=== PATIENT | female | born 1980 | race Caucasian/White ===

== ENCOUNTER → 2017-09-24 | Outpatient (CLI) | payer BC ==
[~2017-09-24] MED LIST: AGM875T PO; ALPR1TAB2 PO; BUTA1CAP39 PO; CALC-823 PO; CEPH500C PO; CYCL10TA9 PO; FAMO20TA5 PO; HYDR-757 PO; LORA10TA7 PO; METH4TAB PO; PRD20T PO; PROM25TA14 PO; SERT50TA2 PO; TRAM50TA2 PO
== END ==
LOC: SLEEP 14:00
PROVIDERS: ATTEND Nurse Practitioner Family
DX: G47.33 Obstructive sleep apnea (adult) (pediatric) (principal)

== ENCOUNTER 2017-10-13 15:55 | Emergency (ER) | payer BC ==
[~2017-10-13] VITALS: Ht 165.1 cm; Wt 90.7 kg
--- OUTSIDE RECORDS SUMMARY | 2017-10-13 16:01 | XMS REPORT | Continuity of Care Document ---
Author Author [facility] Organization [facility] Address Unknown Phone Unavailable Allergies Active Description Code Type Severity Reaction Onset Reported/Identified Relationship to Patient Clinical Status Yes CONTRAST DYE CONTRAST DYE Unknown rash 11/20/2015 Yes ibuprofen [id number] Drug Allergy Severe FACIAL SWELLING 11/20/2015 Medications There is no data. Problems Date Dx Coded Attending Type Code Diagnosis Diagnosed By 03/04/2010 Ot 599.0 03/04/2010 Ot 625.9 09/30/2010 Ot 708.9 03/23/2012 Ot 599.0 URIN TRACT INFECTION NOS 03/23/2012 Ot 620.2 OVARIAN CYST NEC/NOS 03/23/2012 Ot 625.9 FEM GENITAL SYMPTOMS NOS 05/19/2015 Ot 218.9 05/19/2015 Ot 620.9 05/19/2015 Ot 620.2 05/19/2015 DAVID YAÑEZ DO Ot 286.9 06/08/2015 MICAELA SOSA, LETTY Simms Ot 783.1 11/20/2015 Ot 218.9 11/20/2015 Ot 620.9 11/20/2015 Ot 620.2 11/20/2015 DAVID YAÑEZ DO Ot 286.9 11/20/2015 LETTY HINOJOSA NP Ot 783.1 11/20/2015 MARKY ROMAN MD Ot S90.32XA CONTUSION OF LEFT FOOT, INITIAL ENCOUNTE 11/20/2015 MARKY ROMAN MD Ot W10.9XXA FALL (ON) (FROM) UNSPECIFIED STAIRS AND 11/20/2015 MARKY ROMAN MD Ot Y92.[address] IN SINGLE-FAMILY (PRIVATE) [place] 11/20/2015 MARKY ROMAN MD Ot Y99.8 OTHER EXTERNAL CAUSE STATUS 06/25/2016 Ot 218.9 UTERINE LEIOMYOMA NOS 06/25/2016 Ot 620.9 NONINFL DIS OVA/ADNX NOS 06/25/2016 Ot 620.2 OVARIAN CYST NEC/NOS 06/25/2016 DAVID YAÑEZ DO Ot 286.9 COAGULAT DEFECT NEC/NOS 06/25/2016 MICAELA SOSA, LETTY Simms Ot 783.1 ABNORMAL WEIGHT GAIN 06/25/2016 DUNCAN GALE DO Ot M79.661 PAIN IN RIGHT LOWER LEG 06/26/2016 DUNCAN GALE DO Ot M79.661 PAIN IN RIGHT LOWER LEG 06/28/2016 Ot 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 Results Test Result Range Complete blood count (CBC) with automated white blood cell (WBC) differential - 06/25/16 20:14 Blood leukocytes automated count (number/volume) 8.7 10*3/uL 4.3-11.0 Blood erythrocytes automated count (number/volume) 4.88 10*6/uL 4.35-5.85 Venous blood hemoglobin measurement (mass/volume) 14.8 g/dL 11.5-16.0 Blood hematocrit (volume fraction) 44 % 35-52 Automated erythrocyte mean corpuscular volume 90 [foz_us] 80-99 Automated erythrocyte mean corpuscular hemoglobin (mass per erythrocyte) 30 pg 25-34 Automated erythrocyte mean corpuscular hemoglobin concentration measurement ( mass/volume) 34 g/dL 32-36 Automated erythrocyte distribution width ratio 13.1 % 10.0-14.5 Automated blood platelet count (count/volume) 370 10*3/uL 130-400 Automated blood platelet mean volume measurement 10.1 [foz_us] 7.4-10.4 Automated blood neutrophils/100 leukocytes 53 % 42-75 Automated blood lymphocytes/100 leukocytes 31 % 12-44 Blood monocytes/100 leukocytes 13 % 0-12 Automated blood eosinophils/100 leukocytes 3 % 0-10 Automated blood basophils/100 leukocytes 1 % 0-10 Blood neutrophils automated count (number/volume) 4.6 10*3 1.8-7.8 Blood lymphocytes automated count (number/volume) 2.7 10*3 1.0-4.0 Blood monocytes automated count (number/volume) 1.1 10*3 0.0-1.0 Automated eosinophil count 0.3 10*3/uL 0.0-0.3 Automated blood basophil count (count/volume) 0.1 10*3/uL 0.0-0.1 PT panel in platelet poor plasma by coagulation assay - 06/25/16 20:14 Prothrombin time (PT) in platelet poor plasma by coagulation assay 13.5 s 12.2-14.7 INR in platelet poor plasma or blood by coagulation assay 1.1 0.8-1.4 Activated partial thromboplastin time (aPTT) in platelet poor plasma bycoagulation assay - 06/25/16 20:14 Activated partial thromboplastin time (aPTT) in platelet poor plasma bycoagulation assay 33 s 24-35 Fibrin D-dimer FEU measurement in platelet poor plasma (mass/volume) - 20:14 Fibrin D-dimer FEU measurement in platelet poor plasma (mass/volume) < ug/mL 0.00-0.49 Comprehensive metabolic panel - 06/25/16 20:14 Serum or plasma sodium measurement (moles/volume) 139 mmol/L 135-145 Serum or plasma potassium measurement (moles/volume) 3.7 mmol/L 3.6-5.0 Serum or plasma chloride measurement (moles/volume) 105 mmol/L 98-107 Carbon dioxide 20 mmol/L 21-32 Serum or plasma anion gap determination (moles/volume) 14 mmol/L 5-14 Serum or plasma urea nitrogen measurement (mass/volume) 12 mg/dL 7-18 Serum or plasma creatinine measurement (mass/volume) 0.78 mg/dL 0.60-1.30 Serum or plasma urea nitrogen/creatinine mass ratio 15 NRG Serum or plasma creatinine measurement with calculation of estimated glomerular filtration rate > NRG Serum or plasma glucose measurement (mass/volume) 96 mg/dL 70-105 Serum or plasma calcium measurement (mass/volume) 9.6 mg/dL 8.5-10.1 Serum or plasma total bilirubin measurement (mass/volume) 0.3 mg/dL 0.1-1.0 Serum or plasma alkaline phosphatase measurement (enzymatic activity/volume) 67 U/L 40-136 Serum or plasma aspartate aminotransferase measurement (enzymatic activity/ volume) 23 U/L 5-34 Serum or plasma alanine aminotransferase measurement (enzymatic activity/volume ) 30 U/L 0-55 Serum or plasma protein measurement (mass/volume) 7.4 g/dL 6.4-8.2 Serum or plasma albumin measurement (mass/volume) 4.3 g/dL 3.2-4.5 Encounters ACCT No. Visit Date/Time Discharge Status Pt. Type Provider Facility Loc./Unit Complaint [id number] 09/24/2017 14:00:00 09/24/2017 23:59:59 CLS Outpatient ELIEZER WHITE APRN [facility] SLEEP G47.33 [id number] 06/25/2016 19:38:00 06/25/2016 21:26:00 DIS Emergency DUNCAN GALE DO [facility] ER R LEG PAIN [id number] 11/20/2015 08:19:00 11/20/2015 09:35:00 DIS Emergency JESSIE PEÑA, MARKY Diamond [facility] ER FALL/LEFT ANKLE INJURY [id number] 05/19/2015 10:44:00 05/19/2015 23:59:59 CLS Outpatient LETTY HINOJOSA NP [facility] LAB ABNORMAL WEIGHT GAIN [id number] 10/26/2013 09:37:00 10/26/2013 23:59:59 CLS Outpatient DAVID YAÑEZ DO [facility] LAB COAGULPATHY [id number] 10/09/2012 09:22:00 Document Registration [id number] 10/02/2012 09:40:00 Document Registration [id number] 03/23/2012 15:26:00 Document Registration [id number] 09/30/2010 10:58:00 Document Registration [id number] 03/03/2010 22:42:00 Document Registration
[2017-10-13] MEDS ORDERED: ORPHENADRINE 60 MG/2 ML (NORFLEX) AMP IM ONE (18:45)
[2017-10-13] MEDS ORDERED: ACETAMINOPHEN 500 MG TAB (TYLENOL) PO ONE (18:45)
--- NOTE | 2017-10-13 18:45 | ED Headache ---
General Chief Complaint: Head/Cervical Problems Stated Complaint: NECK PAIN Nursing Triage Note: Pt c/o head and neck pain starting today around 1300. Pt reports she has been experiencing neck pain and headache when working out over last week. Nursing Sepsis Screen: No Definite Risk Source: patient Exam Limitations: no limitations History of Present Illness Date Seen by Provider: Oct 13, 2017 Time Seen by Provider: 18:35 Initial Comments Here with report of neck and headache pain that starts after she does her workouts and started today about 1 p.m. She had laid off her workouts for couple days and the headache and neck pain had resolved and then she tried again today and it came back. She does also have history of migraines and states this is a little different and she can feel a throbbing in her head. Blood pressure noted to be 160s over 100s when she arrived. No history of hypertension in her but she has fairly significant family history of high blood pressure. Denies chest pain specifically or breathing problems. Denies nausea , vomiting or weakness. Severity/Quality: moderate Location: global Prior Headaches/Recent Trauma: occasional headaches Modifying Factors: worse with other (exercise worsens) Associated Symptoms: No confusion, No fatigue, No facial pain, No fever/chills , No loss of consciousness, No nausea/vomiting, No nasal congestion, No nasal drainage, No stiff neck, No vision changes, No weakness Allergies and Home Medications Allergies Coded Allergies: ibuprofen (Verified Allergy, Severe, FACIAL SWELLING, 11/20/15) Uncoded Allergies: CONTRAST DYE (Allergy, Unknown, rash, 11/20/15) Home Medications Alprazolam 1 Mg Tablet, 0.5 MG PO PRN, (Reported) Butalb/Acetaminophen/Caffeine 1 Each Capsule, 1 EACH PO, (Reported) Calcium Carbonate 500 Mg Tablet, 500 MG PO, (Reported) Cyclobenzaprine HCl 10 Mg Tablet, 10 MG PO Q8H, #15 Prescribed by: DUNCAN GALE on 06/25/162055 Methylprednisolone 4 Mg Tab.ds.pk, 4 MG PO UD, #1 Prescribed by: DUNCAN GALE on 06/25/162055 Promethazine HCl 25 Mg Tablet, 25 MG PO Q6H PRN for NAUSEA/VOMITING, (Reported) Sertraline HCl 50 Mg Tablet, 50 MG PO DAILY, (Reported) Constitutional: see HPI, No chills, No fever Eyes: No Symptoms Reported Ears, Nose, Mouth, Throat: no symptoms reported Respiratory: no symptoms reported Cardiovascular: see HPI, No chest pain, No edema Gastrointestinal: no symptoms reported Genitourinary: no symptoms reported Musculoskeletal: see HPI, No muscle pain, neck pain (throbbing of the neck with the events) Skin: no symptoms reported Psychiatric/Neurological: See HPI All Other Systems Reviewed Negative Unless Noted: Yes Past Oggvtps-Ngvpwn-Dcwmff Hx Patient Social History Alcohol Use: Occasionally Uses Alcohol Beverage of Choice: Rum Recreational Drug Use: No Smoking Status: Never a Smoker 2nd Hand Smoke Exposure: No Recent Foreign Travel: No Contact w/Someone Who Travel: No Recent Infectious Disease Expo: No Recent Hopitalizations: No Physical Abuse: No Sexual Abuse: No Mistreated: No Fear: No Immunizations Up To Date Tetanus Booster (TDap): Less than 5yrs Seasonal Allergies Seasonal Allergies: Yes Surgeries History of Surgeries: Yes (EYE) Surgeries: Eye Surgery, Oophorectomy Respiratory History of Respiratory Disorde: Yes (NOCTERNAL HYPOXIA) Currently Using CPAP: No Currently Using BIPAP: No Cardiovascular History of Cardiac Disorders: No Neurological History of Neurological Disord: Yes Neurological Disorders: Headaches /Migraines Reproductive System Hx Reproductive Disorders: No 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 Genitourinary History of Genitourinary Disor: No Gastrointestinal History of Gastrointestinal Di: No Musculoskeletal History of Musculoskeletal Dis: No Endocrine History of Endocrine Disorders: No HEENT History of HEENT Disorders: No Loss of Vision: Denies Cancer History of Cancer: No Psychosocial History of Psychiatric Problem: Yes Behavioral Health Disorders: Anxiety, Depression Suicide Risk Score: 1 Integumentary History of Skin or Integumenta: No Blood Transfusions History of Blood Disorders: No Adverse Reaction to a Blood Tr: No Reviewed Nursing Assessment Reviewed/Agree w Nursing PMH: Yes Family Medical History Significant Family History: Heart Disease, Hypertension Physical Exam Vital Signs Vital Sign - Last 12Hours 10/13/17 16:53 Temp 98.2 Pulse 71 Resp 18 B/P (MAP) 148/90 (109) Pulse Ox 98 O2 Delivery Room Air Capillary Refill : Less Than 3 Seconds General Appearance: WD/WN, no apparent distress HEENT: PERRL/EOMI, TMs normal, pharynx normal Neck: full range of motion, supple Cardiovascular: regular rate, rhythm, no murmur Respiratory: lungs clear, normal breath sounds Gastrointestinal: non tender, soft Back: normal inspection, no CVA tenderness, no vertebral tenderness Extremities: non-tender, normal inspection Psychiatric: alert, oriented x 3 Crainal Nerves: normal hearing, normal speech, PERRL Coordination/Gait: normal gait Motor/Sensory: no motor deficit, no sensory deficit, no pronator drift Skin: normal color, warm/dry Progress/Results/Core Measures Results/Orders Lab Results Laboratory Tests Test 10/13/17 18:48 Range/Units White Blood Count 10.5 4.3-11.0 10^3/uL Red Blood Count 4.92 4.35-5.85 10^6/uL Hemoglobin 15.1 11.5-16.0 G/DL Hematocrit 44 35-52 % Mean Corpuscular Volume 89 80-99 FL Mean Corpuscular Hemoglobin 31 25-34 PG Mean Corpuscular Hemoglobin Concent 34 32-36 G/DL Red Cell Distribution Width 13.0 10.0-14.5 % Platelet Count 383 130-400 10^3/uL Mean Platelet Volume 10.5 H 7.4-10.4 FL Neutrophils (%) (Auto) 64 42-75 % Lymphocytes (%) (Auto) 27 12-44 % Monocytes (%) (Auto) 7 0-12 % Eosinophils (%) (Auto) 3 0-10 % Basophils (%) (Auto) 0 0-10 % Neutrophils # (Auto) 6.7 1.8-7.8 X 10^3 Lymphocytes # (Auto) 2.8 1.0-4.0 X 10^3 Monocytes # (Auto) 0.7 0.0-1.0 X 10^3 Eosinophils # (Auto) 0.3 0.0-0.3 10^3/uL Basophils # (Auto) 0.0 0.0-0.1 10^3/uL Sodium Level 138 135-145 MMOL/L Potassium Level 3.5 L 3.6-5.0 MMOL/L Chloride Level 100 98-107 MMOL/L Carbon Dioxide Level 25 21-32 MMOL/L Anion Gap 13 5-14 MMOL/L Blood Urea Nitrogen 15 7-18 MG/DL Creatinine 0.76 0.60-1.30 MG/DL Estimat Glomerular Filtration Rate > 60 BUN/Creatinine Ratio 20 Glucose Level 90 70-105 MG/DL Calcium Level 10.2 H 8.5-10.1 MG/DL Total Bilirubin 0.4 0.1-1.0 MG/DL Aspartate Amino Transf (AST/SGOT) 43 H 5-34 U/L Alanine Aminotransferase (ALT/SGPT) 37 0-55 U/L Alkaline Phosphatase 65 40-136 U/L Total Protein 7.9 6.4-8.2 GM/DL Albumin 4.5 3.2-4.5 GM/DL My Orders Orders - JSAON HOFF MD Cbc With Automated Diff (10/13/17 18:43) Comprehensive Metabolic Panel (10/13/17 18:43) Orphenadrine Injection (Norflex Injectio (10/13/17 18:45) Acetaminophen Tablet (Tylenol Tablet) (10/13/17 18:45) Ekg Tracing (10/13/17 18:45) Lisinopril Tablet (Zestril Tablet) (10/13/17 19:45) Medications Given in ED Current Medications Medications Dose Ordered Sig/Paul Route Start Time Stop Time Status Last Admin Dose Admin Acetaminophen 1,000 mg ONCE ONCE PO 10/13/17 18:45 10/13/17 18:46 DC 10/13/17 18:53 1,000 MG Orphenadrine Citrate 60 mg ONCE ONCE IM 10/13/17 18:45 10/13/17 18:46 DC 10/13/17 18:54 60 MG Vital Signs/I&O Vital Sign - Last 12Hours 10/13/17 16:53 Temp 98.2 Pulse 71 Resp 18 B/P (MAP) 148/90 (109) Pulse Ox 98 O2 Delivery Room Air Blood Pressure Mean: 109 Progress Note : Progress Note Seen and evaluated. Blood pressure noted to be elevated. EKG and labs ordered. Tylenol 1 g by mouth and Norflex 60 mg IM. 1949: Symptoms have essentially mostly resolved and she feels better. Lisinopril 10 mg by mouth ordered after discussion with her primary care physician Dr. Hartman. He is recommending follow-up in the clinic. We will initiate prescription of lisinopril as well as Flexeril when necessary. Discharged home with return precautions. Patient and family verbalize understanding instructions and agreement with plan. ECG Initial ECG Impression Date: Oct 13, 2017 Initial ECG Impression Time: 18:59 Initial ECG Rate: 63 Initial ECG Rhythm: Normal Sinus Initial ECG Comparisson: No Previous ECG Available Comment Sinus rhythm with normal but rightward axis. No evidence of ST elevation LA. No previous available for comparison. Interpreted by me. Departure Impression Impression: Primary Impression: Hypertension Qualified Codes: I10 - Essential (primary) hypertension Additional Impression: Headache Qualified Codes: G44.209 - Tension-type headache, unspecified, not intractable Disposition: 01 HOME, SELF-CARE Condition: Improved Departure-Patient Inst. Decision time for Depature: 19:52 Referrals: ALINA HARTMAN MD (PCP/Family) Primary Care Physician Patient Instructions: High Blood Pressure (DC), Tension Headache (DC) Add. Discharge Instructions: All discharge instructions reviewed with patient and/or family. Voiced understanding. Take medications as directed. Follow-up with your DrLakhwinder this week for recheck and further evaluation. Call his office in the morning. Return for worsening, fever, vomiting, weakness, breathing problems or other concerns as needed. Scripts Cyclobenzaprine HCl (Cyclobenzaprine HCl) 10 Mg Tablet 10 MG PO Q8H Y for SPASMS, #15 TAB 0 Refills Prov: JASON HOFF MD 10/13/17 Lisinopril (Lisinopril) 10 Mg Tablet 10 MG PO DAILY for 30 Days, #3 TAB Prov: JASON HOFF MD 10/13/17 Copy Copies To 1: ALINA HARTMAN MD, TIMOTHY D MD Oct 13, 2017 18:45
[2017-10-13 18:58] LABS: BASOPHILS % (AUTO) 0 % (0-10); EOSINOPHILS # (AUTO) 0.3 10^3/uL (0.0-0.3); EOSINOPHILS % (AUTO) 3 % (0-10); HEMATOCRIT 44 % (35-52); HEMOGLOBIN 15.1 G/DL (11.5-16.0); LYMPHOCYTES # (AUTO) 2.8 X 10^3 (1.0-4.0); LYMPHOCYTES % (AUTO) 27 % (12-44); MEAN CORPUSCULAR HEMOGLOBIN 31 PG (25-34); MEAN CORPUSCULAR HGB CONC 34 G/DL (32-36); MEAN CORPUSCULAR VOLUME 89 FL (80-99); MEAN PLATELET VOLUME 10.5 FL (7.4-10.4); MONOCYTES # (AUTO) 0.7 X 10^3 (0.0-1.0); MONOCYTES % (AUTO) 7 % (0-12); NEUTROPHILS # (AUTO) 6.7 X 10^3 (1.8-7.8); NEUTROPHILS % (AUTO) 64 % (42-75); PLATELET COUNT 383 10^3/uL (130-400); RED BLOOD COUNT 4.92 10^6/uL (4.35-5.85); WHITE BLOOD COUNT 10.5 10^3/uL (4.3-11.0)
[2017-10-13 19:19] LABS: ALANINE AMINOTRANSFERASE 37 U/L (0-55); ALBUMIN 4.5 GM/DL (3.2-4.5); ALKALINE PHOSPHATASE 65 U/L (40-136); BILIRUBIN,TOTAL 0.4 MG/DL (0.1-1.0); BUN/CREATININE RATIO 20; CALCIUM 10.2 MG/DL (8.5-10.1); CARBON DIOXIDE 25 MMOL/L (21-32); CHLORIDE 100 MMOL/L (98-107); CREATININE SERUM 0.76 MG/DL (0.60-1.30); GFR ESTIMATED > 60; GLUCOSE 90 MG/DL (70-105); POTASSIUM 3.5 MMOL/L (3.6-5.0); SODIUM 138 MMOL/L (135-145); TOTAL PROTEIN 7.9 GM/DL (6.4-8.2)
[2017-10-13] MEDS ORDERED: lisINopril 10 MG (PRINIVIL) TAB PO ONE (19:45)
[2017-10-13] MEDS ORDERED: LISI10TA2 PO (19:53)
[2017-10-13] MEDS ORDERED: CYCL10TA9 PO (19:53)
[2017-10-13 20:04] VITALS: BP 128/80
== END 2017-10-13 20:04 | disposition home or self-care (01) ==
LOC: EDUNIT# 15:55 → ER 15:57
DX: I10 Essential (primary) hypertension (principal); R51 Headache; F41.9 Anxiety disorder, unspecified; F32.9 Major depressive disorder, single episode, unspecified; Z90.710 Acquired absence of both cervix and uterus; Z98.890 Other specified postprocedural states; Z82.49 Family history of ischemic heart disease and other diseases of the circulatory system
CPT/HCPCS: 36415; 80053; 85025; 93005; 96372

== ENCOUNTER → 2018-05-26 | Outpatient (CLI) | payer BC ==
[~2018-05-26] MED LIST changes: +LISI10TA2 PO
== END ==
LOC: LABNPT 22:08
PROVIDERS: ATTEND Nurse Practitioner Family
DX: N89.8 Other specified noninflammatory disorders of vagina (principal)
CPT/HCPCS: 87088; 87491; 87591